=== PATIENT | male | born 1970 | race Asian ===

== ENCOUNTER 2024-12-02 01:07 | Emergency (ER) | payer OTHER ==
[~2024-12-02] VITALS: Ht 177.8 cm; Wt 88.6 kg
[~2024-12-02 01:07] MED LIST: LEVE-71 PO; QUET25TA PO
[2024-12-02 01:16] VITALS: BP 135/100; PULSE 83; RESP 16; TEMP 98; O2SAT 97
== END 2024-12-02 03:30 | disposition left against medical advice (07) ==
LOC: EMS 03:17
DX: R22.42 Localized swelling, mass and lump, left lower limb (principal); Z53.21 Procedure and treatment not carried out due to patient leaving prior to being seen by health care provider